=== PATIENT | male | born 1930 | race Two or more races ===

== ENCOUNTER 2016-12-23 13:09 | Emergency (ER) | payer MEDICARE, BC ==
[~2016-12-23] VITALS: Ht 170.2 cm; Wt 80.7 kg
--- NOTE | 2016-12-23 13:10 | NUR ---
PT BIBRA FROM HOME TO ER BED 09. PER REPORT, PT IS ALTERED. REFUSING TO ANSWERS QUESTIONS. WAS RECENTLY D/C'D FROM A DIFFERENT HOSPITAL FOR FALL. GOWNED AND PLACED ON MONITOR. VSS RN FAMILY PRACTICE. AWAITING MD HERRERA.
--- NOTE | 2016-12-23 13:43 | NUR ---
DR MEDELLIN AT BEDSIDE FOR EVAL.
--- NOTE | 2016-12-23 13:48 | NUR ---
RADIOLOGY AT BEDSIDE FOR CHEST XRAY.
--- NOTE | 2016-12-23 13:50 | NUR ---
PT TO RADIOLOGY FOR HEAD CT SCAN VIA [facility].
[2016-12-23 14:15] LABS: BASOPHILS # (AUTO) 0.1 /CMM (0.0-0.2); BASOPHILS % (AUTO) 0.5 % (0.0-2.0); EOSINOPHILS % (AUTO) 0.2 % (0.0-6.0); HEMATOCRIT 48 % (39-51); LYMPHOCYTES # (AUTO) 0.8 /CMM (0.8-4.8); LYMPHOCYTES % (AUTO) 7.7 % (20.0-44.0); MEAN CORPUSCULAR HEMOGLOBIN 32 PG (26.0-33.0); MEAN CORPUSCULAR HGB CONC 33 g/dl (31.0-36.0); MEAN CORPUSCULAR VOLUME 96 fL (80-96); MONOCYTES # (AUTO) 0.8 /CMM (0.1-1.30); NEUTROPHILS # (AUTO) 9.1 /CMM (1.8-8.9); NEUTROPHILS % (AUTO) 84.6 % (43.0-81.0); PLATELET COUNT (AUTO) 288 /CMM (150-450); RDW COEFFICIENT OF VARIATION 14.3 (11.5-15.0); RED BLOOD CELL COUNT(AUTO) 4.99 MIL/uL (4.5-6.0); WHITE BLOOD COUNT (AUTO) 10.7 K/uL (4.3-11.0)
--- NOTE | 2016-12-23 14:24 | NUR ---
TRANSFERED TO ER BED 07.
--- NOTE | 2016-12-23 14:29 | NUR ---
PT NOW IS MORE AWAKE. VERBALLY RESPONSIVE. [id number] AT THIS TIME. WILL CONTINUE TO MONITOR.
[2016-12-23 14:32] LABS: CALCIUM, SERUM 9.3 mg/dL (8.5-10.1); CARBON DIOXIDE 27 mmol/L (21-32); CHLORIDE 99 mmol/L (98-107); CREATININE 1.7 mg/dL (0.6-1.3); GLUCOSE 121 mg/dL (74-106); POTASSIUM 4.4 mmol/L (3.5-5.1); SODIUM SERUM 133 mmol/L (136-145); UREA NITROGEN, BLOOD 17 mg/dL (7-18)
[2016-12-23 14:36] LABS: INR 0.98 (0.87-1.13); PROTHROMBIN TIME 10.2 SECS (9.5-12.7)
[2016-12-23 14:38] LABS: ALANINE AMINOTRANSFERASE 17 U/L (12-78); ALBUMIN 3.7 g/dL (3.4-5.0); ALKALINE PHOSPHATASE 89 U/L (46-116); ASPARTATE AMINOTRANSFERASE 13 U/L (15-37); BILIRUBIN,DIRECT 0.1 mg/dL (0.0-0.2); BILIRUBIN,TOTAL 0.7 mg/dL (0.2-1.0)
[2016-12-23 14:43] LABS: TROPONIN I < 0.017 ng/mL (0.00-0.056)
--- NOTE | 2016-12-23 14:43 | NUR ---
[facility] paged via exchange - [phone]
[2016-12-23 14:49] LABS: THYROID STIMULATING HORMONE 1.675 uIU/mL (0.358-3.74)
--- NOTE | 2016-12-23 15:13 | NUR ---
PT ACCEPTED TO [facility] ROOM 4532-1 NUMBER FOR REPORT IS [phone] X [phone] ETA FOR CCT TRANSPORT IS 45MIN
[2016-12-23 15:25] VITALS: BP 131/91
--- NOTE | 2016-12-23 15:25 | NUR ---
SPOKE WITH SON JAYE ALFARO [phone]
--- NOTE | 2016-12-23 15:52 | NUR ---
Toño akins in ED - 12/23/16 at 1627 by JOVAN REPORT GIVEN TO MARKUS. PT AWAITING TRANSFER TO [facility].
--- NOTE | 2016-12-23 15:52 | NUR ---
REPORT GIVEN TO ICU NURSE MARKUS AT [facility]. AWAITING TRANSPORT AMBULANCE.
[2016-12-23] MEDS ORDERED: LEVETIRACETAM (500MG) 500 MG in IV NS 0.9% 100 ML IV SCH (16:00)
== END 2016-12-23 16:31 | disposition short-term general hospital (02) ==
LOC: ER 13:10
DX: S06.5X9A Traumatic subdural hemorrhage with loss of consciousness of unspecified duration, initial encounter (principal); I10 Essential (primary) hypertension; R51 Headache; Z95.2 Presence of prosthetic heart valve; W18.30XA Fall on same level, unspecified, initial encounter; Y92.89 Other specified places as the place of occurrence of the external cause; Y93.89 Activity, other specified; Y99.8 Other external cause status
CPT/HCPCS: 36415; 70450; 71010; 80048; 80076; 84443; 84484; 85025; 85730; 93005; 96365; 99291; A4606; J1953; J7030; Z7610